=== PATIENT | female | born 1980 | race Caucasian/White ===

== ENCOUNTER 2016-08-16 00:04 | Inpatient (IN) | payer OTHER ==
[2016-08-16] VITALS (9 sets, daily range): BP systolic 103–127; BP diastolic 55–76
[~2016-08-16 00:04] MED LIST: MOTRIN800 MG PO; Motrin PO; PRENATAL TABLE1 EAC3 PO; Percocet 5/325,Endoc PO; Senokot S,Pericolace PO; VICODIN 5-3001 EACH PO
[2016-08-16 01:14] LABS: HEMATOCRIT 30.4 % (36.0-46.0); MCH 30.7 PG (29.0-34.0); MCHC 34.2 G/DL (30.0-36.0); MCV 89.7 FL (83-99); PLATELET COUNT 242 K/uL (156-360); RBC DIS.WIDTH-CV 12.5 % (11.8-14.6); RBC DIS.WIDTH-SD 41.1 % (39-53); RED BLOOD COUNT 3.39 M/uL (3.80-5.20); WHITE BLOOD COUNT 6.3 K/uL (4.1-10.2)
[2016-08-16] MEDS ORDERED: PERCOCET 5/31 TABLET PO (01:16)
[2016-08-16] MEDS ORDERED: MOTRIN800 MG PO (01:16)
[2016-08-17 03:00] VITALS: BP 140/86
[2016-08-17 06:47] LABS: EOSINOPHIL (%) 0.7 % (0-5); EOSINOPHIL COUNT 0.1 K/uL (0-0.3); HEMATOCRIT 28.2 % (36.0-46.0); IMMATURE GRANULOCYTE (%) 0.4 % (0.0-0.7); LYMPHOCYTE COUNT 1.2 K/uL (1.0-2.8); MCH 30.3 PG (29.0-34.0); MCV 91.9 FL (83-99); MONOCYTE (%) 8.1 % (3-12); MONOCYTE COUNT 0.6 K/uL (0-0.8); NEUTROPHIL (%) 73.5 % (45-76); PLATELET COUNT 189 K/uL (156-360); RBC DIS.WIDTH-CV 12.5 % (11.8-14.6); RBC DIS.WIDTH-SD 41.9 % (39-53); RED BLOOD COUNT 3.07 M/uL (3.80-5.20); WHITE BLOOD COUNT 6.8 K/uL (4.1-10.2)
[2016-08-17 14:46] VITALS: BP 126/81
[2016-08-17 18:23] VITALS: BP 116/64
[2016-08-17 20:05] VITALS: BP 119/71
[2016-08-17 23:23] VITALS: BP 125/79
[2016-08-18 15:37] VITALS: BP 126/79
== END 2016-08-18 15:46 | disposition home or self-care (01) | DRG 766 ==
LOC: LDRP-OP → 2WEST 00:05 → LDRP-OP 09-29 13:37
PROVIDERS: Obstetrics & Gynecology
PROC: 10D00Z1 Extraction of Products of Conception, Low, Open Approach (ICD-10-PCS; principal; 2016-08-16)
DX: O34.211 Maternal care for low transverse scar from previous cesarean delivery (principal); Z3A.38 38 weeks gestation of pregnancy; Z37.0 Single live birth; O99.02 Anemia complicating childbirth; D64.9 Anemia, unspecified; Z87.440 Personal history of urinary (tract) infections; Z88.0 Allergy status to penicillin; Z88.1 Allergy status to other antibiotic agents
CPT/HCPCS: 85025; 85027; 86850; 86900; 86901; J1580; J2274; J2405; J7120